=== PATIENT | female | born 1995 | race African-American/Black ===

== ENCOUNTER 2016-12-05 12:34 | Emergency (ER) | payer OTHER ==
[~2016-12-05] VITALS: Ht 162.6 cm; Wt 72.0 kg
[~2016-12-05 12:34] MED LIST: ALBUAER2 INH; CYM/30 PO; GABA-113 PO
[2016-12-05 12:44] VITALS: TEMP 36.6; Ht 162.6 cm; Wt 72.0 kg
[2016-12-05] MEDS ORDERED: PRVHFAIN INH (13:09)
[2016-12-05 13:21] VITALS: O2SAT 100
[2016-12-05] MEDS ORDERED: ALBUT/IPRATROP 3MG/0.5MG NEB 3 ML VIAL INH STA (13:45)
[2016-12-05] MEDS ORDERED: SODIUM CHLORIDE 0.9% 1000ML 1,000 ML IV STA (13:45)
--- NOTE | 2016-12-05 14:05 | DIAGNOSTIC IMAGING REPORT ---
CHEST ONE VIEW PORTABLE CLINICAL HISTORY: Chest pain and shortness of breath. COMPARISON STUDY: Chest radiograph January 01, 2016. FINDINGS: There is mild rightward curvature of visualized portions of the lumbar spine. Lung volumes are normal. There is no pneumothorax or pleural effusion. Cardiac size is normal. Mediastinal contours are normal. There is no evidence of pulmonary edema. IMPRESSION: No acute cardiopulmonary findings. Electronically signed by: Osmar Jackson M.D. 12/05/2016 2:03 PM Dictated Date/Time: 12/05/2016 2:03 PM
[2016-12-05 14:13] LABS: ALT/SGPT 58 U/L (12-78); AST/SGOT 31 U/L (15-37); BASO % 0.3 %; BASO ABS # 0.03 K/uL (0-0.2); BLOOD UREA NITROGEN 10 mg/dl (7-18); CALCIUM 9.6 mg/dl (8.5-10.1); CARBON DIOXIDE 24 mmol/L (21-32); CHLORIDE 103 mmol/L (98-107); COMPLETE YES; CREATININE 0.87 mg/dl (0.60-1.20); EOS % 2.2 %; GLUCOSE 77 mg/dl (70-99); HEMATOCRIT 40.7 % (37-47); IG% 0.1 %; LYMPH % 31.6 %; LYMPH ABS # 2.78 K/uL (1.2-3.4); MEAN CELL VOLUME 78.6 fL (80-100); MEAN CORPUSCULAR HEMOGLOBIN 26.3 pg (25-34); MEAN CORPUSCULAR HGB CONC 33.4 g/dl (32-36); MEAN PLATELET VOLUME 11.7 fL (7.4-10.4); MONO % 9.4 %; NEUT % 56.4 %; PLATELET COUNT 394 K/uL (130-400); POTASSIUM 3.7 mmol/L (3.5-5.1); RED BLOOD COUNT 5.18 M/uL (4.2-5.4); SODIUM 139 mmol/L (136-145); WHITE BLOOD COUNT 8.79 K/uL (4.8-10.8)
[2016-12-05 14:23] LABS: ALB/GLOB RATIO 0.8 (0.9-2); ALKALINE PHOSPHATASE 148 U/L (45-117)
--- NOTE | 2016-12-05 14:42 | DIAGNOSTIC IMAGING REPORT ---
CT OF THE HEAD WITHOUT CONTRAST CLINICAL HISTORY: Dizziness. Vision changes. COMPARISON STUDY: Head CT December 30, 2015 and MRI of the brain July 28, 2016. CT DOSE: 537.48 mGy.cm TECHNIQUE: Helical axial images of the head were obtained without IV contrast. Automated exposure control was utilized for the study. FINDINGS: No acute intracranial hemorrhage, midline shift or mass effect is present. Ventricular system is normal. Basilar cisterns are patent. No extra axial collections are present. Perdue-white differentiation is maintained. There are no findings to suggest acute dural sinus thrombosis or acute territorial infarct. Visualized portions of the sinuses and mastoid air cells are clear. There are no calvarial abnormalities. IMPRESSION: No acute intracranial findings. Electronically signed by: Osmar Jackson M.D. 12/05/2016 2:40 PM Dictated Date/Time: 12/05/2016 2:33 PM
[2016-12-05 14:49] LABS: LYME DISEASE AB IGG NEG (NEG); LYME DISEASE AB IGM NEG (NEG)
[2016-12-05 15:02] LABS: URINE APPEARANCE CLEAR (CLEAR); URINE BILIRUBIN NEG (NEG); URINE COLOR YELLOW; URINE NITRITE NEG (NEG); URINE SPECIFIC GRAVITY 1.011 (1.000-1.030); UROBILINOGEN NEG (NEG); ZZUR CULT IF INDIC CLEAN CATCH NO
--- NOTE | 2016-12-05 15:03 | EMERGENCY ROOM VISIT NOTE ---
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 Blurry vision, SOB, nausea. History of Present Illness The patient is a 21 year old female who presents to the Emergency Room with multiple complaints. The patient reports that she has shortness of breath, dizziness, nausea, chest pain and tunnel vision. She reports that all of these symptoms began today approximately 2 hours ago while she was sitting in class. She denies any history of similar symptoms. She states that the chest pain is on the left side of her chest. The shortness of breath is constant. The patient reports that she is currently being evaluated by a direct support professional home health for possible fibromyalgia. She states she has chronic gait issues and has an aide at all times to help her ambulate. She rates her current discomfort a 10/10. She denies any alleviating or aggravating factors. The patient does report that she typically has headaches and dizziness due to the fibromyalgia. However , she does report that the tunnel vision and shortness of breath or new symptoms for her. She denies any fevers/chills, neck pain, recent illness, abdominal pain, vomiting or diarrhea. Review of Systems A complete 10-point Review of Systems was discussed with the patient, with pertinent positives and negatives listed in the History of Present Illness. All remaining Review of Systems questions can be considered negative unless otherwise specified. Past Medical/Surgical History Medical Problems: (1) Fatigue Family History No significant family history Social History Smoking Status: Never Smoker Alcohol Use: occasionally Drug Use: none Housing Status: lives with friends Occupation Status: [employer] Current/Historical Medications Scheduled Duloxetine HCl (Cymbalta), 30 MG PO DAILY Gabapentin (Neurontin), 300 MG PO DAILY Scheduled PRN Albuterol (Ventolin Hfa), 2 PUFFS INH QID PRN for Wheezing Allergies Coded Allergies: Latex (Verified Allergy, Unknown, rash, 12/05/16) Physical Exam Vital Signs Date Time Temp Pulse Resp B/P Pulse Ox O2 Delivery O2 Flow Rate FiO2 12/05/16 15:12 90 18 127/83 98 12/05/16 13:59 87 12/05/16 13:23 85 133/87 100 Room Air 114 144/89 107 116/96 12/05/16 13:21 100 Room Air 12/05/16 12:44 36.6 99 18 127/80 99 Room Air Physical Exam VITALS: Vitals are noted on the nurse's note and reviewed by myself. Vital signs stable. GENERAL: This is a 21-year-old female, in no acute distress, nondiaphoretic, well-developed well-nourished. SKIN: The skin was without rashes, erythema, edema, or bruising. HEAD: Normocephalic atraumatic. EARS: External auditory canals clear, tympanic membranes pearly perdue without erythema or effusion bilaterally. EYES: Pupils equal round and reactive to light and accommodation. Conjunctivae without injection, sclerae without icterus. Extraocular movements intact. No visual field defects. MOUTH: Mucous membranes moist. Tonsils are not enlarged. Pharynx without erythema or exudate. Tongue does not deviate. NECK: Supple without nuchal rigidity. No lymphadenopathy. HEART: Regular rate and rhythm without murmurs gallops or rubs. LUNGS: Clear to auscultation bilaterally without wheezes, rales or rhonchi. ABDOMEN: Positive bowel sounds x 4. Soft, nontender to palpation. MUSCULOSKELETAL: No muscle atrophy, erythema, or edema noted. Full range of motion in all extremities. Strength 5/5 throughout. NEURO: Patient was alert and oriented to person place and time. Normal sensation to light and sharp touch. Deep tendon reflexes 2+ throughout. No focal neurological deficits. Medical Decision & Procedures ER Provider Diagnostic Interpretation: CHEST ONE VIEW PORTABLE FINDINGS: There is mild rightward curvature of visualized portions of the lumbar spine. Lung volumes are normal. There is no pneumothorax or pleural effusion. Cardiac size is normal. Mediastinal contours are normal. There is no evidence of pulmonary edema. IMPRESSION: No acute cardiopulmonary findings. CT OF THE HEAD WITHOUT CONTRAST FINDINGS: No acute intracranial hemorrhage, midline shift or mass effect is present. Ventricular system is normal. Basilar cisterns are patent. No extra axial collections are present. Perdue-white differentiation is maintained. There are no findings to suggest acute dural sinus thrombosis or acute territorial infarct. Visualized portions of the sinuses and mastoid air cells are clear. There are no calvarial abnormalities. IMPRESSION: No acute intracranial findings. Laboratory Results 12/05/16 13:15 Red Blood Count 5.18, Mean Corpuscular Volume 78.6, Mean Corpuscular Hemoglobin 26.3, Mean Corpuscular Hemoglobin Concent 33.4, Mean Platelet Volume 11.7, Neutrophils (%) (Auto) 56.4, Lymphocytes (%) (Auto) 31.6, Monocytes (%) (Auto) 9.4, Eosinophils (%) (Auto) 2.2, Basophils (%) (Auto) 0.3, Neutrophils # (Auto) 4.95, Lymphocytes # (Auto) 2.78, Monocytes # (Auto) 0.83, Eosinophils # (Auto) 0.19, Basophils # (Auto) 0.03 12/05/16 13:15 Test 12/05/16 13:10 12/05/16 13:15 Urine Color YELLOW Urine Appearance CLEAR (CLEAR) Urine pH 6.0 (4.5-7.5) Urine Specific [place] 1.011 (1.000-1.030) Urine Protein NEG (NEG) Urine Glucose (UA) NEG (NEG) Urine Ketones NEG (NEG) Urine Occult Blood NEG (NEG) Urine Nitrite NEG (NEG) Urine Bilirubin NEG (NEG) Urine Urobilinogen NEG (NEG) Urine Leukocyte Esterase NEG (NEG) Urine Test NEG (NEG) White Blood Count 8.79 K/uL (4.8-10.8) Red Blood Count 5.18 M/uL (4.2-5.4) Hemoglobin 13.6 g/dL (12.0-16.0) Hematocrit 40.7 % (37-47) Mean Corpuscular Volume 78.6 fL (80-100) Mean Corpuscular Hemoglobin 26.3 pg (25-34) Mean Corpuscular Hemoglobin Concent 33.4 g/dl (32-36) Platelet Count 394 K/uL (130-400) Mean Platelet Volume 11.7 fL (7.4-10.4) Neutrophils (%) (Auto) 56.4 % Lymphocytes (%) (Auto) 31.6 % Monocytes (%) (Auto) 9.4 % Eosinophils (%) (Auto) 2.2 % Basophils (%) (Auto) 0.3 % Neutrophils # (Auto) 4.95 K/uL (1.4-6.5) Lymphocytes # (Auto) 2.78 K/uL (1.2-3.4) Monocytes # (Auto) 0.83 K/uL (0.11-0.59) Eosinophils # (Auto) 0.19 K/uL (0-0.5) Basophils # (Auto) 0.03 K/uL (0-0.2) RDW Standard Deviation 50.5 fL (36.4-46.3) RDW Coefficient of Variation 17.6 % (11.5-14.5) Immature Granulocyte % (Auto) 0.1 % Immature Granulocyte # (Auto) 0.01 K/uL (0.00-0.02) D-Dimer 240 ug/L FEU (0-500) Anion Gap 12.0 mmol/L (3-11) Est Creatinine Clear Calc Drug Dose 100.4 ml/min Estimated GFR () 111.1 Estimated GFR (Non- 95.9 BUN/Creatinine Ratio 12.0 (10-20) Calcium Level 9.6 mg/dl (8.5-10.1) Total Bilirubin 0.4 mg/dl (0.2-1) Aspartate Amino Transf (AST/SGOT) 31 U/L (15-37) Alanine Aminotransferase (ALT/SGPT) 58 U/L (12-78) Alkaline Phosphatase 148 U/L (45-117) Troponin I < 0.015 ng/ml (0-0.045) Total Protein 9.1 gm/dl (6.4-8.2) Albumin 4.1 gm/dl (3.4-5.0) Globulin 5.0 gm/dl (2.5-4.0) Albumin/Globulin Ratio 0.8 (0.9-2) Thyroid Stimulating Hormone (TSH) 2.330 uIu/ml (0.300-4.500) Lyme Disease IgG Antibody NEG (NEG) Lyme Disease IgM Antibody NEG (NEG) Medications Administered Medications (Trade) Dose Ordered Sig/Jordy Route Start Time Stop Time Status Last Admin Dose Admin Sodium Chloride (Nss 1000ml) 1,000 ml @ 999 mls/hr Q1H1M STAT IV 12/05/16 13:45 12/05/16 14:45 DC 12/05/16 13:45 999 MLS/HR Albuterol/ Ipratropium (Duoneb) 3 ml NOW STAT INH 12/05/16 13:45 12/05/16 13:49 DC 12/05/16 14:04 3 ML ECG Rate (beats per minute): 94 Rhythm: normal sinus Change: no significant change Medical Decision Differential diagnosis includes pulmonary embolism, ACS, intracranial lesion, anxiety, infection, metabolic abnormality, among others. The patient was evaluated as above. Labs were drawn and IV access was obtained. Imaging studies were performed and read by radiology as above. The patient was medicated with 1 L normal saline solution. The patient was reassessed multiple times during their stay in the emergency department and remained in stable condition. The patient is a 21-year-old female who presents today with multiple complaints. Labs revealed no leukocytosis, anemia or concerning electrolyte abnormalities. Troponin was not elevated. D-dimer was not elevated. EKG showed normal sinus rhythm. Urinalysis was not suggestive of infection. Urine was negative. Chest x-ray showed no active disease within the chest. CT of the head was negative for any acute findings. The patient's orthostatic vital signs were mildly positive. She did feel better after a saline bolus and DuoNeb treatment. Her symptoms may be anxiety related. She was instructed to follow-up with her primary care provider as needed and return for any worsening symptoms. She verbalized understanding. Based on the patient's presentation, lab results, and imaging studies, I feel the patient is stable for outpatient treatment. The patient's case was reviewed with Dr. Lopez, ED attending physician, who agreed with my assessment and treatment plan. Discharge instructions were reviewed with the patient. The patient verbalized understanding of my assessment and treatment plan and was discharged home in good condition. Impression Primary Impression: Lightheadedness Departure Information Dispostion Home / Self-Care Condition GOOD Referrals Trina Mead M.D. (PCP) Patient Instructions My [facility] Additional Instructions For pain control, you can use the following [id number] medicines (if >12 yo): - Regular strength (325mg/tab) Tylenol (acetaminophen) 2 tabs every 4-6 hours as needed. Do not exceed 12 tablets in a 24 hour period. Avoid taking more than 4 grams (4000 mg) of Tylenol per day. This includes any other sources of acetaminophen you may take on a regular basis. - Regular strength (200 mg/tab) Advil (ibuprofen) 1-2 tabs every 4-6 hours as needed. Do not exceed a dose of 3200 mg per day. Rest and drink plenty of fluids. Use the albuterol inhaler at home as needed for shortness of breath. Follow-up with your primary care provider within one week for further evaluation of your symptoms.
[2016-12-05 15:09] LABS: MANUAL MICROSCOPIC REQUIRED? NO; REVIEW REQ? NO
[2016-12-05 15:12] VITALS: BP 127/83; PULSE 90; O2SAT 98
== END 2016-12-05 15:13 | disposition home or self-care (01) ==
LOC: C.EDB 12:36 → C.EDC 15:13
DX: R42 Dizziness and giddiness (principal); R06.02 Shortness of breath; R07.9 Chest pain, unspecified; H53.9 Unspecified visual disturbance; Z91.040 Latex allergy status

== ENCOUNTER 2017-01-18 21:23 | Emergency (ER) | payer OTHER ==
[~2017-01-18] VITALS: Ht 162.6 cm; Wt 73.3 kg
[~2017-01-18 21:23] MED LIST changes: -ALBUAER2 INH; +PRVHFAIN INH
[2017-01-18 21:24] VITALS: TEMP 36.4; Ht 162.6 cm; Wt 73.3 kg
[2017-01-18] MEDS ORDERED: MELO15TA4 PO (21:50)
[2017-01-18] MEDS ORDERED: SODIUM CHLORIDE 0.9% 1000ML 1,000 ML IV STA (22:21)
[2017-01-18] MEDS ORDERED: ONDANSETRON INJ 2 MG/ML 2 ML VIAL IV STA (22:21)
--- NOTE | 2017-01-18 23:00 | DIAGNOSTIC IMAGING REPORT ---
SINGLE VIEW CHEST CLINICAL HISTORY: Dyspnea. FINDINGS: An AP, portable, upright chest radiograph is compared to study dated 12/05/2016. The cardiomediastinal silhouette is unremarkable. The lungs and pleural spaces are clear. No pneumothorax is seen. The bony thorax is grossly intact. IMPRESSION: No active disease in the chest. Electronically signed by: Rory Chase M.D. 01/18/2017 10:58 PM Dictated Date/Time: 01/18/2017 10:58 PM
[2017-01-18 23:06] LABS: BASO % 0.3 %; BASO ABS # 0.03 K/uL (0-0.2); COMPLETE YES; EOS % 2.2 %; HEMATOCRIT 38.3 % (37-47); IG% 0.2 %; LYMPH % 29.3 %; LYMPH ABS # 3.22 K/uL (1.2-3.4); MEAN CELL VOLUME 78.6 fL (80-100); MEAN CORPUSCULAR HEMOGLOBIN 26.3 pg (25-34); MEAN CORPUSCULAR HGB CONC 33.4 g/dl (32-36); MEAN PLATELET VOLUME 10.5 fL (7.4-10.4); MONO % 9.5 %; NEUT % 58.5 %; PLATELET COUNT 385 K/uL (130-400); RED BLOOD COUNT 4.87 M/uL (4.2-5.4); WHITE BLOOD COUNT 10.99 K/uL (4.8-10.8)
--- NOTE | 2017-01-18 23:19 | EMERGENCY ROOM VISIT NOTE ---
History First contact with patient: 22:12 Chief Complaint: HEADACHE Stated Complaint: DIZZY, HEADACHE, NAUSEA History of Present Illness The patient is a 21 year old female who presents to the Emergency Room with complaints of nausea, dizziness, chest pain, shortness of breath, headache and blurred vision. The patient reports that she has had all of the symptoms for " a long time." She states that her vision occasionally becomes blurry. She sometimes feels like she is going to lose consciousness, but does not actually lose consciousness. She has had intermittent headaches and shortness of breath. The patient has been seen here previously for symptoms as well as by her primary care provider. Recently, the patient followed up with a tennis professional and was diagnosed with fibromyalgia. She has been taking gabapentin and meloxicam without relief of her symptoms. The patient does report she has previously had an MRI of the brain in August of last year. She states that the symptoms have been ongoing for several months and she is frustrated with his symptoms. She denies any abdominal pain, vomiting, changes in bowel movements, fevers/chills, neck pain/stiffness or urinary symptoms. Review of Systems A complete 10-point Review of Systems was discussed with the patient, with pertinent positives and negatives listed in the History of Present Illness. All remaining Review of Systems questions can be considered negative unless otherwise specified. Past Medical/Surgical History Medical Problems: (1) Fatigue Family History No significant family history Social History Smoking Status: Never Smoker Alcohol Use: occasionally Drug Use: none Housing Status: lives with friends Occupation Status: [employer] student Current/Historical Medications Scheduled Duloxetine HCl (Cymbalta), 30 MG PO DAILY Gabapentin (Neurontin), 300 MG PO DAILY Meloxicam (Meloxicam), 15 MG PO DAILY Scheduled PRN Albuterol (Ventolin Hfa), 2 PUFFS INH QID PRN for Wheezing Allergies Coded Allergies: Latex (Verified Allergy, Unknown, rash, 01/18/17) Physical Exam Vital Signs Date Time Temp Pulse Resp B/P Pulse Ox O2 Delivery O2 Flow Rate FiO2 01/19/17 01:40 83 18 129/69 96 01/19/17 00:23 89 18 108/53 99 Room Air 01/18/17 22:42 97 01/18/17 22:40 89 143/88 106 143/94 125 86/72 01/18/17 21:24 36.4 126 18 144/83 100 Room Air Physical Exam VITALS: Vitals are noted on the nurse's note and reviewed by myself. Vital signs stable. GENERAL: This is a 21-year-old female, in no acute distress, nondiaphoretic, well-developed well-nourished. SKIN: Capillary reflex less than 2 seconds. HEENT: Normocephalic. PERRLA. EOMI. Nares patent. Mucous membranes moist. Neck is supple without nuchal rigidity. HEART: Regular rate and rhythm without murmurs gallops or rubs. LUNGS: Clear to auscultation bilaterally without wheezes, rales or rhonchi. No retractions or accessory muscle use. ABDOMEN: Positive bowel sounds x 4. Soft, nontender, without masses or organomegaly. MUSCULOSKELETAL: Full range of motion throughout, strength 5/5. NEURO: Patient was alert and oriented to person place and time. Normal sensation to light and sharp touch. Deep tendon reflexes 2+ throughout. No focal neurological deficits. Medical Decision & Procedures ER Provider Diagnostic Interpretation: SINGLE VIEW CHEST CLINICAL HISTORY: Dyspnea. FINDINGS: An AP, portable, upright chest radiograph is compared to study dated 12/05/2016. The cardiomediastinal silhouette is unremarkable. The lungs and pleural spaces are clear. No pneumothorax is seen. The bony thorax is grossly intact. IMPRESSION: No active disease in the chest. Laboratory Results 01/18/17 22:45 Red Blood Count 4.87, Mean Corpuscular Volume 78.6, Mean Corpuscular Hemoglobin 26.3, Mean Corpuscular Hemoglobin Concent 33.4, Mean Platelet Volume 10.5, Neutrophils (%) (Auto) 58.5, Lymphocytes (%) (Auto) 29.3, Monocytes (%) (Auto) 9.5, Eosinophils (%) (Auto) 2.2, Basophils (%) (Auto) 0.3, Neutrophils # (Auto) 6.44, Lymphocytes # (Auto) 3.22, Monocytes # (Auto) 1.04, Eosinophils # (Auto) 0.24, Basophils # (Auto) 0.03 01/18/17 22:45 Test 01/18/17 22:45 01/18/17 23:05 White Blood Count 10.99 K/uL (4.8-10.8) Red Blood Count 4.87 M/uL (4.2-5.4) Hemoglobin 12.8 g/dL (12.0-16.0) Hematocrit 38.3 % (37-47) Mean Corpuscular Volume 78.6 fL (80-100) Mean Corpuscular Hemoglobin 26.3 pg (25-34) Mean Corpuscular Hemoglobin Concent 33.4 g/dl (32-36) Platelet Count 385 K/uL (130-400) Mean Platelet Volume 10.5 fL (7.4-10.4) Neutrophils (%) (Auto) 58.5 % Lymphocytes (%) (Auto) 29.3 % Monocytes (%) (Auto) 9.5 % Eosinophils (%) (Auto) 2.2 % Basophils (%) (Auto) 0.3 % Neutrophils # (Auto) 6.44 K/uL (1.4-6.5) Lymphocytes # (Auto) 3.22 K/uL (1.2-3.4) Monocytes # (Auto) 1.04 K/uL (0.11-0.59) Eosinophils # (Auto) 0.24 K/uL (0-0.5) Basophils # (Auto) 0.03 K/uL (0-0.2) RDW Standard Deviation 47.1 fL (36.4-46.3) RDW Coefficient of Variation 16.5 % (11.5-14.5) Immature Granulocyte % (Auto) 0.2 % Immature Granulocyte # (Auto) 0.02 K/uL (0.00-0.02) D-Dimer 410 ug/L FEU (0-500) Anion Gap 12.0 mmol/L (3-11) Est Creatinine Clear Calc Drug Dose 125.8 ml/min Estimated GFR () 144.6 Estimated GFR (Non- 124.7 BUN/Creatinine Ratio 18.0 (10-20) Calcium Level 9.7 mg/dl (8.5-10.1) Total Bilirubin 0.4 mg/dl (0.2-1) Aspartate Amino Transf (AST/SGOT) 16 U/L (15-37) Alanine Aminotransferase (ALT/SGPT) 33 U/L (12-78) Alkaline Phosphatase 123 U/L (45-117) Total Protein 8.6 gm/dl (6.4-8.2) Albumin 4.0 gm/dl (3.4-5.0) Globulin 4.6 gm/dl (2.5-4.0) Albumin/Globulin Ratio 0.9 (0.9-2) Lyme Disease IgG Antibody NEG (NEG) Lyme Disease IgM Antibody NEG (NEG) Urine Color YELLOW Urine Appearance CLEAR (CLEAR) Urine pH 7.5 (4.5-7.5) Urine Specific [place] 1.019 (1.000-1.030) Urine Protein NEG (NEG) Urine Glucose (UA) NEG (NEG) Urine Ketones NEG (NEG) Urine Occult Blood 1+ (NEG) Urine Nitrite NEG (NEG) Urine Bilirubin NEG (NEG) Urine Urobilinogen NEG (NEG) Urine Leukocyte Esterase TRACE (NEG) Urine WBC (Auto) 1-5 /hpf (0-5) Urine RBC (Auto) 0-4 /hpf (0-4) Urine Hyaline Casts (Auto) 1-5 /lpf (0-5) Urine Epithelial Cells (Auto) >30 /lpf (0-5) Urine Bacteria (Auto) 1+ (NEG) Date/Time Source Procedure Growth Status 01/18/17 23:05 Urine , Clean Catch Urine Culture - Final Lactobacillus Species Complete Medications Administered Medications (Trade) Dose Ordered Sig/Jordy Route Start Time Stop Time Status Last Admin Dose Admin Sodium Chloride (Nss 1000ml) 1,000 ml @ 999 mls/hr Q1H1M STAT IV 01/18/17 22:21 01/18/17 23:21 DC 01/18/17 22:58 999 MLS/HR Ondansetron HCl 4 mg 4 mg NOW STAT IV 01/18/17 22:21 01/18/17 22:23 DC 01/18/17 22:58 4 MG Sodium Chloride (Nss 1000ml) 1,000 ml @ 999 mls/hr Q1H1M STAT IV 01/19/17 00:04 01/19/17 01:04 DC 01/19/17 00:04 999 MLS/HR ECG Rate (beats per minute): 97 Rhythm: normal sinus Findings: nonspecific-ST abn (Anterior), no acute ischemic change, no ectopy Change: no significant change Medical Decision Differential diagnosis includes metabolic abnormality, infection, pulmonary embolism, pneumonia, mass/mass effect, psych, among others. The patient was evaluated as above. Labs were drawn and IV access was obtained. Imaging studies were performed and read by radiology as above. The patient was medicated with 1 L normal saline solution. The patient was reassessed multiple times during their stay in the emergency department and remained in stable condition. The patient is a 21-year-old female who presents today complaining of multiple complaints. The patient has been here multiple times previously for similar symptoms and has had multiple negative workups. Labs revealed no leukocytosis, anemia or concerning electrolyte abnormalities. D-dimer was not elevated. Urinalysis was not suggestive of infection. Urine was negative. EKG was interpreted by myself and showed a normal sinus rhythm. And chest x-ray was unremarkable. Orthostatic vital signs were positive. The patient was hydrated with 2 L normal saline solution. She was instructed to follow closely with her primary care provider or return sooner for worsening symptoms. Based on the patient's presentation, lab results, and imaging studies, I feel the patient is stable for outpatient treatment. The patient's case was reviewed with Dr. Keller, ED attending physician, who agreed with my assessment and treatment plan. Discharge instructions were reviewed with the patient. The patient verbalized understanding of my assessment and treatment plan and was discharged home in good condition. Impression Primary Impression: Orthostatic hypotension Departure Information Dispostion Home / Self-Care Condition GOOD Referrals Trina Mead M.D. (PCP) Patient Instructions My [facility] Additional Instructions For pain control, you can use the following [id number] medicines (if >12 yo): - Regular strength (325mg/tab) Tylenol (acetaminophen) 2 tabs every 4-6 hours as needed. Do not exceed 12 tablets in a 24 hour period. Avoid taking more than 4 grams (4000 mg) of Tylenol per day. This includes any other sources of acetaminophen you may take on a regular basis. - Regular strength (200 mg/tab) Advil (ibuprofen) 1-2 tabs every 4-6 hours as needed. Do not exceed a dose of 3200 mg per day. Rest and drink plenty of fluids. Follow-up with your primary care provider in your tennis professional for further evaluation of your symptoms. Return to the emergency department with any new/concerning symptoms.
[2017-01-18 23:31] LABS: URINE APPEARANCE CLEAR (CLEAR); URINE BILIRUBIN NEG (NEG); URINE COLOR YELLOW; URINE EPITHELIAL CELL AUTO >30 /lpf (0-5); URINE NITRITE NEG (NEG); URINE PH 7.5 (4.5-7.5); URINE SPECIFIC GRAVITY 1.019 (1.000-1.030); UROBILINOGEN NEG (NEG); ZZUR CULT IF INDIC CLEAN CATCH YES
[2017-01-18 23:34] LABS: CALCIUM 9.7 mg/dl (8.5-10.1); CREATININE 0.7 mg/dl (0.60-1.20); POTASSIUM 3.7 mmol/L (3.5-5.1)
[2017-01-18 23:37] LABS: ALB/GLOB RATIO 0.9 (0.9-2)
[2017-01-18 23:53] LABS: MANUAL MICROSCOPIC REQUIRED? NO; REVIEW REQ? NO
[2017-01-19] MEDS ORDERED: SODIUM CHLORIDE 0.9% 1000ML 1,000 ML IV STA (00:04)
[2017-01-19 00:27] LABS: LYME DISEASE AB IGG NEG (NEG); LYME DISEASE AB IGM NEG (NEG)
[2017-01-19 01:40] VITALS: BP 129/69; PULSE 83; O2SAT 96
== END 2017-01-19 01:40 | disposition home or self-care (01) ==
LOC: C.EDB 21:23 → C.EDA 01-19 01:40
DX: I95.1 Orthostatic hypotension (principal); M79.7 Fibromyalgia; Z79.899 Other long term (current) drug therapy; Z91.040 Latex allergy status

== ENCOUNTER → 2017-03-13 | Outpatient (CLI) | payer OTHER ==
[~2017-03-13] MED LIST changes: +MELO15TA4 PO
[2017-03-21 19:49] LABS: CHLAMYDIA TRACH RNA*** NOT DETECTED (NOT DETECTED); GC (NEIS GONORRHOEAE)RNA** NOT DETECTED (NOT DETECTED)
== END | disposition home or self-care (01) ==
LOC: C.LABSPEC 14:57
PROVIDERS: ATTEND Physician Assistant
DX: Z01.419 Encounter for gynecological examination (general) (routine) without abnormal findings (principal)

== ENCOUNTER → 2017-09-11 | Outpatient (CLI) | payer OTHER ==
[2017-09-11 12:23] LABS: BASO % 0.2 %; BASO ABS # 0.02 K/uL (0-0.2); EOS % 3.1 %; HEMATOCRIT 35.7 % (37-47); IG% 0.2 %; LYMPH % 30.4 %; LYMPH ABS # 2.63 K/uL (1.2-3.4); MEAN CELL VOLUME 81.3 fL (80-100); MEAN CORPUSCULAR HEMOGLOBIN 26.4 pg (25-34); MEAN CORPUSCULAR HGB CONC 32.5 g/dl (32-36); MEAN PLATELET VOLUME 10.8 fL (7.4-10.4); MONO % 6.9 %; NEUT % 59.2 %; PLATELET COUNT 426 K/uL (130-400); RED BLOOD COUNT 4.39 M/uL (4.2-5.4); WHITE BLOOD COUNT 8.66 K/uL (4.8-10.8)
[2017-09-11 12:53] LABS: ALT/SGPT 19 U/L (12-78); BLOOD UREA NITROGEN 11 mg/dl (7-18); BUN/CREATININE RATIO 15.4 (10-20); CALCIUM 9.2 mg/dl (8.5-10.1); CARBON DIOXIDE 26 mmol/L (21-32); CHLORIDE 103 mmol/L (98-107); GLUCOSE 211 mg/dl (70-99); SODIUM 136 mmol/L (136-145)
[2017-09-11 12:56] LABS: ALB/GLOB RATIO 0.8 (0.9-2); ALKALINE PHOSPHATASE 96 U/L (45-117); AST/SGOT 14 U/L (15-37); FERRITIN 5.4 ng/ml (8.0-388.0); TOTAL IRON BINDING CAPACITY 422 mcg/dl (250-450)
[2017-09-11 13:06] LABS: COMPLETE YES
== END | disposition home or self-care (01) ==
LOC: C.LAB 10:45
PROVIDERS: ATTEND Family Medicine
DX: D50.9 Iron deficiency anemia, unspecified (principal); R77.1 Abnormality of globulin; Z86.13 Personal history of malaria